=== PATIENT | female | born 1955 | race Caucasian/White ===

== ENCOUNTER 2023-05-06 14:01 | Outpatient (OUT) | payer OTHER, SELFPAY ==
--- NOTE | 2023-05-06 | MM_ITS ---
Patient Name: CORAZON DUQUE MR#: [id number] : 1955 Exam Date: 05/06/2023 Ordering Doctor: DR Sydni Cooper M.D. RADIOLOGY REPORT PROCEDURE: MM TOMOSYNTHESIS SCREENING BI COMPARISON: MG MAMM SCREEN ESTHER W CAD, 11/20/2018. MG MAMM SCREEN 3D ESTHER CAD, 02/05/2022. INDICATIONS: Screening for malignant neoplasm Calculator Name NCI Breast Cancer Risk Assessment Tool 5 Year Breast Cancer Risk 1.20% Lifetime Breast Cancer Risk 4.40% Personal Breast Cancer No Personal Ovarian Cancer No Treatments None Family Cancers None LOCATION: [facility] BREAST COMPOSITION: Heterogeneously dense,which may obscure small masses. FINDINGS: DIAGNOSTIC CATEGORY 2--BENIGN FINDING. NO CHANGE FROM COMPARISON. Scattered benign-appearing calcifications are present. Scattered benign-appearing lymph nodes are present. RIGHT BREAST: No significant suspicious finding. LEFT BREAST: No significant suspicious finding. Asymmetry upper outer quadrant, mid breast, stable RECOMMENDATIONS: ROUTINE MAMMOGRAM AND CLINICAL EVALUATION IN 12 MONTHS. PLEASE NOTE: A NORMAL MAMMOGRAM DOES NOT EXCLUDE THE POSSIBILITY OF BREAST CANCER. A CLINICALLY SUSPICIOUS PALPABLE LUMP SHOULD BE BIOPSIED. Dictated by: Rishi Dangelo MD on 05/07/2023 at 07:33 Approved by: Rishi Dangelo MD on 05/07/2023 at 07:35
[2023-05-06 14:35] LABS: Basophils Percent Auto 0.7 % (0.2-2.0); Hematocrit 39.6 % (36.0-48.0); Hemoglobin 12.1 g/dL (12.0-16.0); Immature Granulocytes Abs Auto 0.02 10^3/uL (0.00-0.03); Immature Granulocytes Pct Auto 0.3 % (0.0-0.5); Lymphocytes Absolute Auto 1.8 10^3/uL (1.2-3.8); Lymphocytes Percent Auto 30.6 % (20.5-60.0); Mean Corpuscular HGB Conc 30.6 g/dL (29.9-35.2); Mean Corpuscular Hemoglobin 24.6 pg (26.7-34.0); Mean Corpuscular Volume 80.5 fL (81.0-99.0); Mean Platelet Volume 9.3 fL (9.5-13.5); Monocytes Absolute Auto 0.5 10^3/uL (0.3-0.8); Monocytes Percent Auto 8.4 % (1.7-12.0); Neutrophils Absolute Auto 3.4 10^3/uL (1.4-6.5); Platelet Count 324 10^3/uL (150-450); Red Blood Count 4.92 10^6/uL (4.20-5.40); Red Cell Distribution Width 15.4 % (11.0-15.0); White Blood Count 5.7 10^3/uL (4.0-11.0)
--- NOTE | 2023-05-06 14:55 | XR_ITS ---
The [address] [address] Patient Name: CORAZON DUQUE MRN: [id number] date: 1955 Sex: F Assigned Patient Location: MAMMO Current Patient Location: MAMMO Accession/Order Number: [id number] Exam Date: 05/06/2023 14:45 Report Date: 05/07/2023 01:29 At the request of: YASEMIN MALAVE Procedure: XR abdomen 1V EXAMINATION: XR abdomen 1V HISTORY: Right Flank Pain R10.0 COMPARISON: XR abdomen 02/15/2014 FINDINGS: KIDNEY/URETER - RIGHT: No visible renal or ureteral calcifications. KIDNEY/URETER - LEFT: No visible renal or ureteral calcifications. PELVIS: Stable right pelvic calcifications favoring phleboliths. BOWEL: No abnormal dilation or deviation. BONES: No acute abnormality. OTHER: Negative. No abnormal gaseous collections. XR/XR abdomen 1V IMPRESSION: 1. No appreciable urinary tract calculi. 2. Moderate stool burden. Electronically authenticated by: HUY DASH Date: 05/07/2023 01:29
--- NOTE | 2023-05-06 14:55 | XR_ITS ---
The [place] [id number] Patient Name: CORAZON DUQUE MRN: [id number] date: 1955 Sex: F Assigned Patient Location: MAMMO Current Patient Location: Accession/Order Number: [id number] Exam Date: 05/06/2023 14:45 Report Date: 05/07/2023 01:27 At the request of: YASEMIN MALAVE Procedure: XR foot RT min 3V PROCEDURE: XR foot RT min 3V HISTORY: Pain Of Right Heel M79.671 COMPARISON: None. FINDINGS: BONES:Bone hypertrophy the head of first metatarsal. Degenerative enthesopathic spurring of the Achilles tendon insertion and plantar aponeurosis. SOFT TISSUES:No visible soft tissue swelling. EFFUSION:None visible. OTHER: Negative. XR/XR foot RT min 3V IMPRESSION: 1. Moderate bunion formation. 2. Mild degenerative enthesopathic spurring which may contribute to patient's symptoms. Electronically authenticated by: HUY DASH Date: 05/07/2023 01:27
[2023-05-06 15:34] LABS: Alanine Aminotransferase 23 U/L (14-59); Albumin Globulin Ratio 1.1; Albumin Level 3.8 g/dL (3.4-5.0); Alkaline Phosphatase 89 U/L (46-116); Anion Gap 12.6; Aspartate Amino Transferase 11 U/L (15-37); BUN Creatinine Ratio 20.3; Bilirubin Total 0.2 mg/dL (0.2-1.0); Calcium 8.5 mg/dL (8.5-10.1); Carbon Dioxide 27.8 mmol/L (21.0-32.0); Chloride 104 mmol/L (98-107); Chol HDL Ratio 4.8; Cholesterol 259 mg/dL (<=200); Estimated GFR (African America >60 (>=60); Estimated GFR (Non-African Ame >60 (>=60); Globulin 3.5 g/dL; Glucose 115 mg/dL (74-106); HDL Cholesterol 54 mg/dL (40-60); Potassium 4.4 mmol/L (3.5-5.1); Sodium 140 mmol/L (136-145); Total Protein 7.3 g/dL (6.4-8.2); Triglycerides 135 mg/dL (<=150)
== END 2023-05-06 14:02 | disposition home or self-care (01) ==
LOC: MAMMO 14:01
PROVIDERS: PCP Family Medicine; Visit Provider Family Medicine
DX: M79.671 Pain in right foot (principal); R10.9 Unspecified abdominal pain; Z12.31 Encounter for screening mammogram for malignant neoplasm of breast; Z00.00 Encounter for general adult medical examination without abnormal findings
CPT/HCPCS: 36415; 73630; 74018; 77063; 77067; 80053; 80061; 84443; 85025

== ENCOUNTER 2025-05-07 14:29 | Outpatient (OUT) | payer OTHER, SELFPAY ==
--- OUTSIDE RECORDS SUMMARY | 2025-05-07 14:32 | XMS_ITS | CCD ---
Author Organization [facility] Care Team Providers Care Back Hanger Name Role Phone DR SYDNI MALAVE Admitting Unavailable ANANDA, DR SYDNI Manuel Primary Care Unavailable DR SYDNI MALAVE Attending Unavailable HARDY, DR DARREN Cruz Consulting Unavailable ANANDA, DR SYDNI Manuel Consulting Unavailable Sydni Malave Sydni Malave MD Primary Care Provider Sydni Malave MD Attending Provider Allergies Allergy ClassificationReported Allergen(s)Allergy TypeDate of OnsetReaction(s) Facility (3 sources)patient allergy list reviewed by nurse or physiciaPropensity to adverse emanopvhe40-95-0172Smvfudb:Orthos Other (3 sources)Allergies ReconciledPropensity to adverse reactionsLawrence General HospitalLendingStar Other Medications Current Medications MedicationDrug Class(es)DatesSig (Normalized)Sig (Original)ibuprofen 800 mg oral tablet (4 sources)Nonsteroidal Anti-inflammatory DrugStart: 46-82-9099izpx 1 tablet by mouth every four to six hours as needed for painIbuprofen 800 mg tablet Active MG PO April 02, 2025 12:00am FreeTextSi tablet Orally q 4-6 hrs for pain prn; Note: Source Status: Taking; Refills: 0; Qty: 30 Tablets; Provider: Angie Manuel Complies with drug therapyStart: 63-52-6800ihbm 1 tablet by mouth every four to six hours as needed for painIbuprofen 800 MG 1 tablet Orally q 4-6 hrs for pain prn for 10 days September, ActiveStart: 47-52-1274ugas 1 tablet by mouth every four to six hours as needed for painIbuprofen 800 MG 1 tablet Orally q 4-6 hrs for pain prn for 10 days September, ActivelamoTRIgine 100 mg oral tablet (9 sources)Mood Stabilizer, Anti-epileptic AgentStart: 05-22-2024 End: 94-61-6433mzak 1 tablet by mouth once dailyLamotrigine 100 mg tablet Active 0 .ROUTE .COMPLEX 30 November 17, 2024 11:43am TAKE 1 TABLET BY MOUTH DAILY Complies with drug therapyStart: 04-20-2024 End: 20-00-2820lzpf 1 tablet by mouth once dailyLamotrigine 100 mg tablet Discontinued 100 MG PO Daily 30 April 20, 2024 1:06pm May 22, 2024 8:03amStart: 03-24-2024 End: 48-58-0183xrfp 1 tablet by mouth once dailyLamotrigine 150 mg tablet Discontinued 150 MG PO Daily March 24, 2024 3:52pm April 20, 2024 1:06pmStart: 08-20-2023 End: 18-37-9009djbg 1 tablet by mouth once dailyLamotrigine 200 mg tablet Discontinued 200 MG PO Daily August 19, 2023 11:00pm March 24, 2024 3:52pm Start: 40-03-6117qkfl 1 tablet by mouth once dailylamoTRIgine 200mg lamoTRIgine 200mg, 1 (one) Tablet daily # 90, 05/02/2022, Ref. x3. Active oral daily for 0 *Pick strength-form from [employer] for eRX* Apr, ActiveSemaglutide (Weight Loss) (1 source)Start: 53-72-1317Jihdfvoulbq (Weight Loss) (Wegovy) 0.25 mg/0.5 mL pen injector Active 0.25 MG SUBCUT every week 2 0Nov2024 12:00am administer weeks 1 through 4 of therapy Complies with drug euwkhpm19 hr venlafaxine 75 mg extended release oral capsule (18 sources)Serotonin and Norepinephrine Reuptake InhibitorStart: 08-20-2023 End: 76-56-9596nahs 1 capsule by mouth once daily at mealtimeVenlafaxine 75 mg capsule,extended release 24hr Active 0 .ROUTE .COMPLEX March 30, 2025 12:16pm TAKE 1 CAPSULE BY MOUTH EVERY DAY WITH FOOD FOR 30 DAYS Complies with drug therapyStart: 08-20-2023 End: 15-30-9223hixj 1 capsule by mouth once dailyVenlafaxine 75 mg capsule,extended release 24hr Discontinued 75 MG PO Daily August 19, 2023 11:00pm August 20, 2023 8:24amVenlafaxine HCl ER 75 MG TAKE 1 CAPSULE BY MOUTH EVERY DAY WITH FOOD FOR 30 DAYS for 30 Active Problems Problem ClassificationProblemDateDocumented DateEpisodic/ChronicAbdominal pain (4 sources)Left upper quadrant pain; Translations: [Left upper quadrant pain] EpisodicDiabetes mellitus without complication (3 sources)Increased glucose level; Translations: [Other abnormal glucose] 57-70-1919VzobrzufHuxpxqlxj of lipid metabolism (3 sources)Hyperlipidemia; Translations: [Hyperlipidemia, unspecified]03-24-2024 ChronicDiverticulosis and diverticulitis (3 sources)Diverticular disease; Translations: [Diverticulosis]Chronic Gastrointestinal hemorrhage (3 sources)Hematochezia; Translations: [Blood in stool]EpisodicMood disorders (1 source)Depressive disorder; Translations: [Depression]36-29-3786UzldkmpYpwxj circulatory disease (2 sources)Carotid bruit; Translations: [Other specified symptoms and signs involving the circulatory and respiratory systems]52-31-8720YzosapwhGmjkq connective tissue disease (1 source)Pain in right footEpisodicOther gastrointestinal disorders (3 sources)Constipation; Translations: [Constipation, unspecified]EpisodicOther screening for suspected conditions (not mental disorders or infectious disease) (5 sources)Encounter for screening mammogram for malignant neoplasm of breast; Translations: [Patient encounter status]EpisodicOther skin disorders (3 sources)Disorder of pigmentation, unspecified; Translations: [Hyperpigmentation]EpisodicThyroid disorders (3 sources)Hypothyroidism; Translations: [Hypothyroidism, unspecified]Chronic Results Test NameValueInterpretationReference RangeFacilityCBC AUTO DIFFon 02-05-2022 BASO #0.0 103/ulNormal0.0-0.1The [facility]burgComment on above:Performed By: #### CBC #### [facility] [address] [address] [address] Yilan ChangBasophils/100 WBC (Bld)0.6 %Normal0.2-2.0The [facility] Comment on above:Performed By: #### CBC #### [facility] [address] [place] [address] Dr. Anali Mohamud #0.0 103/ulNormal0.0-0.7The [facility]burgComment on above: Performed By: #### CBC #### [facility] [address] [place] [address] Dr. Anali Sanchesosinophils/100 WBC (Bld)0.0 %Critically low0.9-7.0The [facility]amisburgComment on above:Performed By: #### CBC #### [facility] [address] [place] [address] Dr. Anali Sanchesrythrocyte distribution width (RBC) [Ratio]15.7 %Critically high 11.0-15.0The [facility]amisburgComment on above:Performed By: #### CBC #### [facility] [address] [place] [address] Dr. Anali TeixeiraHematocrit (Bld) [Volume fraction]39.7 %Xeyman20.0-48.0The [facility]burgComment on above:Performed By: #### CBC #### [facility] [address] [place] [address] Dr. Anali TeixeiraHemoglobin (Bld) [Mass/Vol]12.3 g/mTGuoouw23.0-16.0The [facility]burgComment on above:Performed By: #### CBC #### [facility] [address] [place] [address] Dr. Anali Paredes #0.03 10e3/ulNormal0.00-0.03The [facility]burgComment on above:Performed By: #### CBC #### [facility] [address] [place] [address] Dr. Anali Paredes %0.5 %Normal0.0-0.5The [facility]burgComment on above: Performed By: #### CBC #### [facility] [address] [address] [address] Anali Jacobsen #1.9 103/ulNormal1.2-3.8The [facility]burgComment on above:Performed By: #### CBC #### [facility] [address] [place] [address] Dr. Anali Guymphocytes/100 WBC (Bld)29.5 %Mpnhlf29.5-60.0The [facility]burgComment on above:Performed By: #### CBC #### [facility] [address] [place] [address] Dr. Anali Brown DIFF REQNONormalThe [facility]burgComment on above: Performed By: #### CBC #### [facility] [address] [place] [address] Dr. Anali Saldivar (RBC) [Entitic mass]24.6 pgCritically low26.7-34.0The [facility]burgComment on above:Performed By: #### CBC #### [facility] [address] [place] [address] Dr. Anali Saldivar (RBC) [Mass/Vol]31.0 g/iKDgnrmf59.9-35.2The [facility]burgComment on above:Performed By: #### CBC #### [facility] [address] [place] [address] Dr. Anali Saldivar (RBC) [Entitic vol]79.6 fLCritically low81.0-99.0The [facility]burgComment on above:Performed By: #### CBC #### [facility] [address] [place] [address] Dr. Anali Johnson #0.5 103/ulNormal0.3-0.8The [facility]burgComment on above:Performed By: #### CBC #### [facility] [address] [place] [address] Dr. Anali Del Castilloocytes/100 WBC (Bld)7.8 %Normal1.7-12.0The [facility] Comment on above:Performed By: #### CBC #### [facility] [address] [place] [address] Dr. Anali DelucaUT #3.9 103/ulNormal1.4-6.5The [facility] on above:Performed By: #### CBC #### [facility] [address] [place] [address] Dr. Anali Delucautrophils/100 WBC (Bld)61.6 %Dacmaw18.0-75.0The [facility]burgComhealthsource sag[place] on above:Performed By: #### CBC #### [facility] [address] [place] [address] Dr. Anali TeixeiraPlatelet mean volume (Bld) [Entitic vol]9.6 fLNormal9.5-13.5The [facility] on above:Performed By: #### CBC #### [facility] [address] [place] [address] Dr. Anali TeixeiraPLT303 103/pnSgbhzw357-868Okh [facility] on above: Performed By: #### CBC #### [facility] [address] [place] [address] Dr. Anali TeixeiraRBC4.99 106/ulNormal4.20-5.40The [facility] on above:Performed By: #### CBC #### [facility] [address] [place] [address] Dr. Anali TeixeiraWBC6.3 103/ulNormal4.0-11.0The [facility] on above: Performed By: #### CBC #### [facility] [address] [place] [address] Dr. Anali TeixeiraLIPID PROFILEon 23-21-1523FBKD-HDL RATIO NORMSEE [facility] on above:Result Comment: 3.3 - 4.4 LOW RISK 4.4 - 7.1 AVERAGE RISK 7.1 - 11.0 MODERATE RISK >11.0 HIGH RISKPerformed By: #### CMP, TSH, LIPID #### [facility] [address] [place] [address] Dr. Yilan ChangCholesterol [Mass/Vol]256 mg/dLCritically high<=200The [facility]burgComment on above:Performed By: #### CMP, TSH, LIPID #### [facility] [address] [place] [address] Dr. Anali Astudilloesterol in HDL [Mass/Vol]55 mg/bBSqpmpn09-89Avh [facility]burgComment on above:Performed By: #### CMP, TSH, LIPID #### [facility] [address] [address] [address] Anali Astudilloesterol in LDL [Mass/Vol]173.0 mg/dLNoAvita Health System Ontario HospitalComment on above:Performed By: #### CMP, TSH, LIPID #### [facility] [address] [place] [address] Dr. Anali Mcdaniel.total/Cholesterol in HDL [Mass ratio]4.7 {ratio} NormalThe [facility]burgComment on above:Performed By: #### CMP, TSH, LIPID #### [facility] [address] [place] [address] Dr. Anali Lemus NORMAL> or = 60 mg/dl - LOW CARDIOVASCULAR RISK <40 mg/dl - HIGH CARDIOVASCULAR RISKProMedica Bay Park HospitalComment on above:Performed By: #### CMP, TSH, LIPID #### [facility] [address] [place] [address] Dr. Anali Spangler CALC NORMALSEE BELOWNoAvita Health System Ontario HospitalComment on above:Result Comment: <100 mg/dl OPTIMAL 100 - 129 mg/dl NEAR OR ABOVE OPTIMAL 130 - 159 mg/dl BORDERLINE HIGH 160 - 189 mg/dl HIGH >190 mg/dl VERY HIGH Performed By: #### CMP, TSH, LIPID #### [facility] [address] [place] [address] Dr. Anali TeixeiraTriglyceride [Mass/Vol]140 mg/dLNormal<=150The [facility] Comment on above:Performed By: #### CMP, TSH, LIPID #### [facility] [address] [place] [address] Dr. Yilan ChangVLDL CALC28.0 mg/dLNoAvita Health System Ontario HospitalComment on above: Performed By: #### CMP, TSH, LIPID #### [facility] [address] [place], [place] [address] Dr. Anali TeixeiraMG MAMM SCREEN 3D ESTHER CADon 64-76-6555ZZ MAMM SCREEN 3D ESTHER CAD Patient: ALE DUQUE Exam Date: 02/05/2022 : 1955 Gender:F Ordering : DR SYDNI MALAVE M.D. Admission #: [id number] Family : Order #: [id number] CLICK HERE TO VIEW EXAM RADIOLOGY REPORT PROCEDURE: MAMMOGRAM SCREENING 3D BILATERAL CAD COMPARISON: MG MAMM ESTHER SCRN W CAD DIG, 04/03/2016. MG MAMM ESTHER SCRN W CAD DIG, 01/15/2014. DIGITIZED_MAMMO, 06/03/2007. MG MAMM SCREEN ESTHER W CAD, 11/20/2018. INDICATIONS: Screening mammography Calculator Name NCI Breast Cancer Risk Assessment Tool 5 Year Breast Cancer Risk 1.20% Lifetime Breast Cancer Risk 4.60% Personal Breast Cancer No Personal Ovarian Cancer No Treatments None Family Cancers None LOCATION: [facility] BREAST COMPOSITION: Heterogeneously dense,which may obscure small masses. FINDINGS: DIAGNOSTIC CATEGORY 1--NEGATIVE. RIGHT BREAST: No significant suspicious finding. No significant change has occurred. LEFT BREAST: No significant suspicious finding. No significant change has occurred. RECOMMENDATIONS: ROUTINE MAMMOGRAM AND CLINICAL EVALUATION IN 12 MONTHS. PLEASE NOTE: A NORMAL MAMMOGRAM DOES NOT EXCLUDE THE POSSIBILITY OF BREAST CANCER. A CLINICALLY SUSPICIOUS PALPABLE LUMP SHOULD BE BIOPSIED. Dictated by: Darren Booker M.D. on 02/06/2022 at 08:52 Approved by: Darren Booker M.D. on 02/06/2022 at 08:56NoAvita Health System Ontario HospitalPROF 14(COMP METB)on 79-91-5422Bvskuoa [Mass/Vol]3.7 g/dLNormal3.4-5.0 The [facility]burgComment on above:Performed By: #### CMP, TSH, LIPID #### [facility] [address] [place], [place] [address] Dr. Anali TeixeiraAlbumin/Globulin [Mass ratio]1.1 {ratio}NormalThe [facility]burgComment on above:Performed By: #### CMP, TSH, LIPID #### [facility] [address] [address] [address] Anali Acosta [Catalytic activity/Vol]89 U/XYpfdvx45-580Itw [facility]burgComment on above:Performed By: #### CMP, TSH, LIPID #### [facility] [address] [address] [address] Anali Ornelas [Catalytic activity/Vol]26 U/TRutvgy01-34Qnw [facility]burgComment on above:Performed By: #### CMP, TSH, LIPID #### [facility] [address] [place] [address] Dr. Anali Hurd gap [Moles/Vol]10.5 mmol/LNormalThe [facility] Comment on above:Performed By: #### CMP, TSH, LIPID #### [facility] [address] [place] [address] Dr. Anali Hudson [Catalytic activity/Vol]12 U/LCritically qia70-98Pcn [facility]burgComment on above:Performed By: #### CMP, TSH, LIPID #### [facility] [address] [place] [address] Dr. Anali TeixeiraBilirubin [Mass/Vol]0.1 mg/dLCritically low0.2-1.0The [facility]burgComment on above:Performed By: #### CMP, TSH, LIPID #### [facility] [address] [place] [address] Dr. Anali TeixeiraCalcium [Mass/Vol]8.5 mg/dLNormal8.5-10.1[facility] Comment on above:Performed By: #### CMP, TSH, LIPID #### [facility] [address] [place] [address] Dr. Anali TeixeiraChloride [Moles/Vol]105 mmol/AOcqmjg10-997SajPromedica [facility] Hospital Comment on above:Performed By: #### CMP, TSH, LIPID #### [facility] [address] [place] [address] Dr. Anali TeixeiraCO2 [Moles/Vol]27.9 mmol/XEwncul38.0-32.0The [facility] Comment on above:Performed By: #### CMP, TSH, LIPID #### [facility] [address] [address] [address] Anali TeixeiraCreatinine [Mass/Vol]0.76 mg/dLNormal0.55-1.02The [facility]burgComment on above:Performed By: #### CMP, TSH, LIPID #### [facility] [address] [place] [address] Dr. Anali SanchesGFR-AF BELARUSIAN>60Normal>=60The [facility]amisburgComment on above:Performed By: #### CMP, TSH, LIPID #### [facility] [address] [place] [address] Dr. Anali Moody-NON AF BELARUSIAN>60Normal>=60The [facility]burgComment on above:Performed By: #### CMP, TSH, LIPID #### [facility] [address] [place] [address] Dr. Anali TeixeiraGlobulin (S) [Mass/Vol]3.5 g/dLNormalThe [facility]burgComment on above:Performed By: #### CMP, TSH, LIPID #### [facility] [address] [place] [address] Dr. Anali TeixeiraGlucose [Mass/Vol]115 mg/dLCritically hbzq15-048Kyv [facility]burgComment on above:Performed By: #### CMP, TSH, LIPID #### [facility] [address] [place] [address] Dr. Anali TeixeiraPotassium [Moles/Vol]4.4 mmol/LNormal3.5-5.1The [facility] Comment on above:Performed By: #### CMP, TSH, LIPID #### [facility] [address] [place] [address] Dr. Anali TeixeiraProtein [Mass/Vol]7.2 g/dLNormal6.4-8.2The [facility] Comment on above:Performed By: #### CMP, TSH, LIPID #### [facility] [address] [address] [address] Anali TeixeiraSodium [Moles/Vol]139 mmol/UPnwsem383-405Tak [facility] Comment on above:Performed By: #### CMP, TSH, LIPID #### [facility] [address] [address] [address] Anali Bonilla nitrogen [Mass/Vol]17.0 mg/dLNormal7.0-18.0The [facility]burgComment on above:Performed By: #### CMP, TSH, LIPID #### [facility] [address] [address] [address] Anali Bonilla nitrogen/Creatinine [Mass ratio]22.4 mg/mgNoalThe [facility]burgComment on above:Performed By: #### CMP, TSH, LIPID #### [facility] [address] [address] [address] Anali Silver 97-68-3712QRC1.402 uIU/mLNormal0.358-3.740The [facility]burgComment on above:Performed By: #### CMP, TSH, LIPID #### [facility] [address] [address] [address] Anali TeixeiraLab Reportson 17-43-7539Dmr Reports [id number]#1.00CD:[address] [place], [place] [address]IntraOperative Documentson 86-55-4353SgnlsBttkwddvu Documents [id number]#1.00CD:[address] [place], [place] [address]Pre-Certification Formon 90-15-2156Dgv-Certification Form [id number]#1.00CD:[address] [place], [place] [address]Coding Summary.on 18-41-1616Vtkduv Summary.CODING DATE: 05/02/2020 FINAL [facility] STATUS: Home (Routine DC) PAYOR: [place] ADMIT DX: REASON FOR VISIT DX: Z01.812 Encounter for preprocedural laboratory examination FINAL DX: PRINCIPAL: Z01.812 Encounter for preprocedural laboratory examination SECONDARY: Z20.828 Contact with and (suspected) exposure to other viral communicable diseases K59.00 Constipation, unspecified R14.0 Abdominal distension (gaseous) K62.5 Hemorrhage of anus and rectum PYMT PROC APC STAT DESCRIPTION DOCTOR NAME DATE NOTE: The code number assigned matches the documented diagnosis and / or procedure in the patient's chart. However, the narrative phrase printed from the coding software may appear abbreviated, or result in slightly different terminology. Coded By: Margo Lopez CphT Date Saved: 05/02/2020 12:26 pmNClermont County HospitalPostoperative Documentson 28-97-4520Adxzvsyzxmntb Documents [id number]#1.00CD:127NoMer[address] Vincent Medical CenterCoding Summary.on 13-21-0974[place] Summary.CODING DATE: 04/29/2020 FINAL [facility] STATUS: Home (Routine DC) PAYOR: [place] APC DESCRIPTION 5311 Level 1 Lower GI Procedures ADMIT DX: REASON FOR VISIT DX: K62.5 Hemorrhage of anus and rectum FINAL DX: PRINCIPAL: K62.5 Hemorrhage of anus and rectum SECONDARY: K57.30 Diverticulosis of large intestine without perforation or abscess without bleeding K64.8 Other hemorrhoids K59.00 Constipation, unspecified R14.0 Abdominal distension (gaseous) PYMT PROC APC STAT DESCRIPTION DOCTOR NAME DATE 28256 5311 T Colonoscopy, flexible; Judith QUARLES MD 04/26/2020 diagnostic, including collection of specimen(s) by brushing or washing, when performed (separate procedure) 06354 Anesthesia for lower Arroyo Jr. Cr MEDRANO 04/26/2020 intestinal endoscopic procedures, endoscope introduced distal to duodenum; not otherwise specified NOTE: The code number assigned matches the documented diagnosis and / or procedure in the patient's chart. However, the narrative phrase printed from the coding software may appear abbreviated, or result in slightly different terminology. Revised Coded By: Carly Stokes Revised Date Saved: 04/29/2020 04:07 [facility] HospitalPre- Certification Formon 79-95-7764Owj-Certification Form [id number]#1.00CD:127NormalFisher Western [facility] CenterMain OR Intraoperative Recordon 80-42-6757Qapu OR Intraoperative Record IntraOp Document Type FT Summary Primary Physician: Judith QUARLES MD Finalized Date/Time: 04/28/20 15:26:55 Pt. Name: ALE DUQUE /Sex: 1955 Female Med Rec #: [id number] Physician: Judith QUARLES MD Financial #: [id number] Pt. Type: O Room/Bed: / Admit/Disch: 04/26/20 07:15:27 - 04/26/20 23:59:59 Institution: Case Times FT Entry 1 Patient Times In Room 04/26/20 09:11:00 Out Room 04/26/20 09:29:00 Procedure Times Start 04/26/20 09:15:00 Stop 04/26/20 09:27:00 Anesthesia Times Start 04/26/20 09:11:00 Stop 04/26/20 09:29:00 Time at [place] 04/26/20 09:21:00 Last Modified By: Karl MATTHEWS, Monae Trimble 04/26/20 09:29:45 General Comments: 04/28/20 - chart logged and finalized for charges. Christiana Delgado, MSN, RN Case Attendance FT Entry 1 Entry 2 Entry 3 Case Attendee Cr Arroyo Jr., DO, MD, Judith Barajas RN, Monae Trimble Role Performed Anesthesiologist of Surgeon - Primary Automotive Salesperson - Primary Record Time In 04/26/20 09:11:00 04/26/20 09:11:00 04/26/20 09:11:00 Time Out 04/26/20 09:29:00 04/26/20 09:29:00 04/26/20 09:29:00 Procedure COLONOSCOPY(.) COLONOSCOPY(.) COLONOSCOPY(.) Comments Last Modified By: Karl RN, Monae Barajas RN, Monae Barajas RN, Monae Trimble 04/26/20 09:29:47 04/26/20 09:29:47 04/26/20 09:29:47 Entry 4 Case Attendee Katerina Skinner Role Performed Scrub - Primary Time In 04/26/20 09:11:00 Time Out 04/26/20 09:29:00 Procedure COLONOSCOPY(.) Comments Last Modified By: Monae Barajas RN 04/26/20 09:29:47 Perioperative Protocols FT Pre-Care Text: Implements protective measures prior to operative or invasive procedure, confirms identity before the operative or invasive procedure, verifies operative procedure, surgical site, and laterality Entry 1 Procedure(s) COLONOSCOPY(.) Patient Identity Birthday, ID Band Verified (select at Check, Patient least 2): Participation Consents / H and P Anesthesia Consent, Operative Site N/A Verified HandP, Surgery/Procedure Marking Verified Consent Surgical Site No Laterality Verified n/a Verified Procedure Verified Yes Correct Patient Yes Position Verified Availability Equipment, Medication Prep Dry n/a Verified (If Applicable) PreOp Antibiotic No Time Out Cr Arryoo Jr., DO Given ROBINA Schmitz MD, Maher, Schaffer RN, Brody Blackmon Kirstyn K Time Out Complete 04/26/20 09:14:00 Outcomes Met? Yes Last Modified By: Monae Barajas RN 04/26/20 09:14:33 Post-Care Text: The patient is free from signs and symptoms of injury caused by extraneous objects Allergy Information FT Pre-Care Text: Verifies allergies Entry 1 Allergies Reviewed? Yes Allergies Reviewed Self/Patient With Outcomes Met? Yes Last Modified By: Monae Barajas RN 04/26/20 07:16:38 Post-Care Text: The patient received appropriate medication(s) safely administered during the perioperative period Surgical Procedures FT Entry 1 Procedure Description Procedure COLONOSCOPY Modifiers . Surgeon Description Colonoscopy Primary Procedure Yes Primary Surgeon Judith QUARLES MD Start 04/26/20 09:15:00 Stop 04/26/20 09:27:00 Anesthesia Type General Surgical Service Gastroenterology Wound Class 2 - Clean-Contaminated Last Modified By: Monae Barajas RN 04/26/20 09:28:05 General Case Data FT Pre-Care Text: Classifies surgical wound, implements aseptic technique, initiates traffic control Entry 1 Case Information OR OR 4 FT Case Level Level 2 Wound Class 2 - Clean-Contaminated Specialty Gastroenterology ASA Class 2 Preop Diagnosis CONSTIPATION BLOATING Postop Same As Preop No RECTAL BLEED Postop Diagnosis Diverticulosis and Outcomes Met? Yes internal hemorrhoids Last Modified By: Monae Barajas RN 04/26/20 09:29:40 Post-Care Text: The patient is free from signs and symptoms of infection Skin Assessment (Pre Procedure) FT Pre-Care Text: Implements protective measures to prevent skin/ tissue injury due to thermal or mechanical sources Evaluates for signs and symptoms of physical injury to skin and tissue Entry 1 Skin Integrity Intact, [place], Warm, and Skin Abnormality No Dry Outcomes Met? Yes Last Modified By: Monae Barajas RN 04/26/20 07:17:06 Post-Care Text: The patient is free from signs and symptoms of injury caused by extraneous objects Patient Positioning FT Pre-Care Text: Identifies physical alterations that require additional precautions for procedure-specific positioning, verifies presence of prosthetics or corrective devices, positions the patient, evaluates the patient for signs and symptoms of injury as a result of positioning Entry 1 Procedure COLONOSCOPY(.) Body Position Lateral, right side up Feet Uncrossed? Yes Left Arm Position Resting at Side Right Arm Position Resting at Side Left Leg Position Extended Right Leg Position Extended Positioning Device Pillow Under Head Large, Safety Strap Press Points Checked Yes By Monae Barajas RN Outcomes Met? Yes Last Modified By: Monae Barajas RN 04/26/20 07:17:16 Post-Care Text: The patient is free from signs and symptoms of injury related to positioning Patient Care Devices FT Pre-Care Text: Implements protective measures to prevent skin/ tissue injury due to thermal or mechanical sources Entry 1 Entry 2 Equipment Type ENDOSCOPY VIDEO MONITOR CHARGE SURGERY SYSTEM[F] [F] Equipment Number OR 4 OR 4 Equipment Setting Outcomes Met? Yes Yes Last Modified By: Monae Barajas RN, RN, Kara N 04/26/20 07:17:36 04/26/20 07:17:36 Post-Care Text: The patient is free from signs and symptoms of injury caused by extraneous objects Transport To OR FT Pre-Care Text: Transports according to individual needs. Evaluates for signs and symptoms of skin and tissue injury as a result of transfer or transport Entry 1 Via Cart By Monae Barajas RN Safety Precautions Safety Strap, Side Outcomes Met? Yes Rails Up Last Modified By: Monae Barajas RN 04/26/20 07:17:44 Post-Care Text: The patient is free from signs and symptoms of injury related to transfer/transport Departure From OR FT Pre-Care Text: Transports according to individual needs. Evaluates for signs and symptoms of skin and tissue injury as a result of transfer or transport. Entry 1 Via Cart Safety Precautions Safety Strap, Side Rails Up PostOp Destination PACU Transported By Monae Barajas RN Patient Status Stable Skin. Condition Intact, [place], Warm, and Dry Airway Maintenance Oxygen in Use? No Airway Device N/A Outcomes Met? Yes Last Modified By: Monae Barajas RN 04/26/20 07:18:07 Post-Care Text: The patient is free from signs and symptoms of injury related to transfer/transport General Comments: Report given to PACU,RN/[place],sports marketer Administration FT Pre-Care Text: Verifies allergies, administers prescribed medications and solutions, administers prescribed antibiotic therapy and immunizing agents as ordered, evaluates response to medications Administers prescribed medications and solutions Entry 1 Expiration Date Yes Outcomes Met? Yes Verified Last Modified By: Monae Barajas RN 04/26/20 07:18:23 Post-Care Text: The patient received appropriate medication(s) safely administered during the perioperative period For [facility] please see scanned medication reconcilliation form for medications used at the field during the procedure. Cultures and Specimens FT Pre-Care Text: Manages specimen handling and disposition Manages culture specimen collection Entry 1 Cultures Ordered n/a Specimens Ordered No Frozen Section Times Outcomes Met? Yes Last Modified By: Monae Barajas RN 04/26/20 09:27:45 Post-Care Text: The patient is free from signs and symptoms of injury caused by extraneous objects The patient is free from signs and symptoms of infection Case Comments Finalized By: AMELIA Delgado RN, Andrea Document Signatures Signed By: Monae Barajas RN 04/26/20 09:29 AMELIA Delgado RN, Andrea 04/28/20 15:26NormalUniversity Hospitals Portage Medical CenterConsenton [id number]:127Normal [facility] CenterDischarge Instructionson 03-08-5323Xvpselncc [id number]:127[facility] CenterHistory and Physicalon 54-41-1766Sufplov and Physical [id number]:127[address]Mer[address] Vincent Medical CenterIntraOperative Documentson [id number] Documents [id number]:127[facility] CenterIntraOperative Documents [id number]:127[facility] Medical CenterConsent for Treatmenton 64-14-3459Mbmeagl for Treatment [id number]:127[facility] Medical CenterEndoscopic Procedure Report - Otheron [id number] Procedure Report - OtherPatient: ALE DUQUE Age: 64 years Sex: Female : 1955 Associated Diagnoses: None Author: Judith QUARLES MD Pre-Procedure Procedure Date 04/26/2020 09:28:00 . Procedure Type: Colonoscopy. Procedure provider Performed by Judith Quarles MD. Current history and physical Documented on chart. Colorectal neoplasm risk assessment Average risk. Informed Consent After discussing the rationale, risks and benefits, and alternatives to this procedure, the patient provided signed consent for the procedure. Pre-procedure diagnosis: Constipation. Rectal bleeding. Medications Anticoagulant/antiplatelet None. ASA Classification: Class II. . Monitoring: See anesthesia record. . Procedure The procedure was performed in the hospital. See anesthesia record for sedation given during procedure. Rectal exam was performed and was normal with no masses palpated, with no gross blood, with no fissure(s). The patient was positioned starting in the left lateral decubitus position and with safety measures. Endoscope type used was an adult-size. The endoscope was lubricated then introduced through the anus. The scope was advanced to the cecum verified by photographing the appendiceal orifice, verified by photographing the ileocecal valve, The time to the cecum was 6 minutes, The withdrawaltime was 6 minutes. No difficulties encountered during the procedure. The bowel preparation qualitywas adequate (see polyps greater than or equal to 6 millimeters). The patient tolerated the procedure well. Findings Mild diverticulosis in the sigmoid and descending colon Small nonbleeding internal hemorrhoids, otherwise normal colonoscopy Images Procedure images: Rectal retroflex Appendiceal orifice . Post-Procedure Complications: none. Estimated blood loss: none. Specimens: none. Devices/ implants: none left in place. Impression and Plan Impression: Mild diverticulosis in the sigmoid and descending colon Small nonbleeding internal hemorrhoids, otherwise normal colonoscopy Recommendations: Repeat colonoscopy:: In 10 years. Follow-up:: Follow-up with PCP as previously scheduled. Diet:: Resume previous diet. Medication resumption:: Continue current medications. Return to activities:: After 24 hours.[facility] Medical CenterComment on above:Result Comment: Electronically Signed By: Judith QUARLES MD\.br\Date and Time Signed: 04/26/20 09:30 ESTOther Comment: Missing Attachment - attachment storage system not supported [id number] Can be viewed in source systemMissing Attachment - attachment storage system not supported [id number] Can be viewed in source systemInpatient Patient Summaryon 01-08-2886Pstmystac Patient Summary [address] [facility] Clinical Discharge Instructions PERSON INFORMATION Name: ALE DUQUE [facility]#:[id number] PHYSICIANS Admitting Physician: Judith QUARLES MD Attending Physician: Judith QUARLES MD PCP: SDYNI MALAVE MD Discharge Diagnosis: Internal hemorrhoids Comment: PATIENT EDUCATION INFORMATION Instructions: Colonoscopy, Care After Surgery Robina (CUSTOM); Diverticulosis MAGR (CUSTOM) Medication Leaflets: Follow up: With: Address: When: Judith [facility], [address] [place] [id number] Business (1) Type Location Start [facility] Follow Up [facility] 05/19/2020 11:00 AM 05/19/2020 11:15 AM Confirmed MEDICATION LIST Medications to Continue with No Changes Other Medications ciprofloxacin (Cipro 500 mg Tab) 1 Tablets By Mouth 2 times a day for 10 Days. Refills: 0. lamotrigine (Lamictal) 200 Milligram By Mouth every day. venlafaxine (Effexor XR 75 mg Cap-ER) 1 Capsules By Mouth every day. Comment:[facility] CenterMain OR PACU I Recordon [id number] OR PACU I RecordPACU Phase I Document Type FT Summary Primary Physician: Judith QUARLES MD Finalized Date/Time: 04/26/20 10:27:02 Pt. Name: ALE DUQUE Melissa AwanB./Sex: 1955 Female Med Rec #: [id number] Physician: Judith QUARLES MD Financial #: [id number] Pt. Type: O Room/Bed: / Admit/Disch: 04/26/20 07:15:27 - Institution: Case Times PACU I FT Pre-Care Text: Identifies barriers to communication and implements measures to provide psychological support Develops individualized plan of care, and ensures continuity of care Maintains patient's dignity and privacy, and maintains patient confidentiality Identifies and reports philosophical, cultural, and spiritual beliefs and values Identifies individual values and wishes concerning care Implements aseptic technique, and administers prescribed antibiotic therapy and immunizing agents as ordered Evaluates postoperative tissue perfusion Implements thermoregulation measures, and monitors body temperature Evaluates postoperative respiratory status Evaluates postoperative cardiac status Evaluates postoperative neurological status Assesses pain control, collaborated in initiating patient-controlled analgesia and implements alternative methods of pain control Verifies allergies, administers prescribed medications and solutions, evaluates response to medications Entry 1 In PACU I 04/26/20 09:31:00 Discharge from PACU 04/26/20 10:10:00 I Outcomes Met? Yes Last Modified By: Yara Barbosa RN 04/26/20 10:20:15 Post-Care Text: The patient demonstrates knowledge of the expected response to the operative or invasive procedure The patient's care is consistent with the individualized perioperative plan of care The patient's rightto privacy is maintained The patient's value system, lifestyle, ethnicity, and culture are considered, respected, and incorporated into the perioperative plan of care The patient participates in decisions affecting his or her perioperative plan of care The patient is free from signs and symptoms of infection The patient has wound/tissue perfusion consistent with or improved from baseline levels established preoperatively The patient is at or returning to normothermia at the conclusion of the immediate postoperative period The patient's respiratory function is consistent with or improved from baseline levels established preoperativelyThe patient's cardiovascular status is consistent with or improved from baseline levels established preoperatively The patient's cardiovascular status is consistent with or improved from baseline levels established preoperatively The patient demonstrates and/or reports adequate pain control throughout the perioperative period The patient received appropriate medication(s), safely administered during the perioperativeperiod Acuity Level PACU I FT Entry 1 Start Time 04/26/20 09:31:00 Stop Time 04/26/20 10:10:00 Acuity Level Acuity Level I Last Modified By: Yara Barbosa RN 04/26/20 10:27:01 Finalized By: Yara Barbosa RN Document Signatures Signed By: Yara Barbosa RN 04/26/20 10:27[facility] CenterMain OR Preoperative Recordon [id number] OR Preoperative RecordHolding Area Document Type FT Summary Primary Physician: Judith QUARLES MD Finalized Date/Time: 04/26/20 07:38:21 Pt. Name: ALE DUQUE./Sex: 1955 Female Med Rec #: [id number] Physician: Judith QUARLES MD Financial #: [id number] Pt. Type: O Room/Bed: / Admit/Disch: 04/26/20 07:15:27 - Institution: Case Times Holding FT Pre-Care Text: Verifies consent for planned procedure, identifies individual values and wishes concerning care, includes family members in perioperative teaching Secures patient's records' belongings, and valuables, maintains patient's dignity and privacy, and maintains patient confidentiality Entry 1 In Holding 04/26/20 07:26:00 Outcomes Met? Yes Last Modified By: Patrick Lantigua RN 04/26/20 07:26:45 Post-Care Text: The patient participates in decisions affecting his or her perioperative plan of care The patient'sright to privacy is maintained Surgery Checklist FT Entry 1 Patient Birthday, ID Band Procedure History and Physical, Identification: Check, Patient Verification: Surgical Consent, With Participation Patient NPO after Midnight: No Personal Items: Glasses, Jewelry Personal Items rings, watch Limitations: none Comment: Complaints of Pain: Yes Pain Comment: abdominal cramping 08/03 Operative Site n/a Availability Equipment Marking: Verified: Does Patient Smoke No Patient states Yes Comment - Adult Richard- postop adult Supervision supervision available Case Cancelled in No Holding Area see comments below for reason Last Modified By: Patrick Lantigua RN 04/26/20 07:38:13 General Comments: pt finished prep at 0515. nothing to eat or drink since. MSRN Finalized By: Patrick Lantigua RN Document Signatures Signed By: Patrick Lantigua RN 04/26/20 07:38NoMercy Health St. Vincent Medical CenterMonitor Recordon [id number] Record [id number]:127No[facility] Center [id number]#1.00CD:127Noal [facility] CenterOutpatient Surgery Discharge Instructionon 04-26-2020 Outpatient Surgery Discharge Instruction [place] [id number] Patient Discharge Instructions PERSON INFORMATION Name: ALE DUQUE Date of : 1955 Current Date: 04/26/2020 09:49:37 PHYSICIANS Admitting Physician: ROBINA BRODERICK Wong Discharge Diagnosis: Internal hemorrhoids ALE DUQUE has been given the following list of follow-up instructions, prescriptions, and patient education materials: PATIENT FOLLOW-UP INFORMATION Diet: Regular Discharge Activity: Resume normal activities in 24 hours Discharge Restrictions: No driving for 24 hrs, Do not operate machinery or tools, Do not make important decisions for 24 hours Additional Instructions: Metamucil fiber 1 tablespoon daily IF UNABLE TO CONTACT YOUR PHYSICIAN AND YOU FEEL IT IS AN EMERGENCY, GO TO THE NEAREST EMERGENCY ROOM OR CALL 911 NETO LovettQUINNSA Melissa, have received the attached patient education materials/instructions and have verbalized understanding: May we do a follow up call? Yes No I was present when discharge instructions were given Patient Signature Date Clinican/Nurse Signature Date Follow up: With: Address: When: [facility], [address] [place] [address] Business (1) Type Location [facility] Follow Up [facility] 05/19/2020 11:00 AM 05/19/2020 11:15 AM Confirmed Pharmacy Information: Thank you for choosing [facility] HERE ARE THE MEDICATION CHANGES THAT OCCURRED DURING YOUR HOSPITAL STAY Medications to Continue with No Changes Other Medications ciprofloxacin (Cipro 500 mg Tab) 1 Tablets By Mouth 2 times a day for 10 Days. Refills: 0. lamotrigine (Lamictal) 200 Milligram By Mouth every day. venlafaxine (Effexor XR 75 mg Cap-ER) 1 Capsules By Mouth every day. PATIENT EDUCATION INFORMATION Instructions: Colonoscopy Care After Surgery Please read the instructions outlined below and refer to this sheet in the next few weeks. These discharge instructions provide you with general information on caring for yourself after you leave thehospital. Your doctor may also give you specific instructions. While your treatment has been planned according to the most current medical practices available, unavoidable complications occasionally occur. If you have any problems or questions after discharge, please call your doctor. ACTIVITY You may resume your regular activity, but move at a slower pace for the next 24 hours. Take frequent rest periods for the next 24 hours. Walking will help get rid of the air and reduce the bloated feeling in your abdomen (belly). No driving for 24 hours (because of the anesthesia (medicine) used during the test). You may shower. Do not sign any important legal documents or operate any machinery for 24 hours (because of the anesthesia used during the test). NUTRITION Drink plenty of fluids. You may resume your normal diet as instructed by your doctor. Begin with a light meal and progress to your normal diet. Heavy or fried foods are harder to digestand may make you feel nauseated (sick to your stomach). Avoid alcoholic beverages for 24 hours or as instructed. MEDICATIONS You may resume your normal medications unless your doctor tells you otherwise. WHAT YOU CAN EXPECT TODAY Some feelings of bloating in the abdomen. Passage of more gas than usual. Spotting of blood in your stool or on the toilet paper. FOLLOW-UP Your doctor will discuss the results of your test with you. SEEK IMMEDIATE MEDICAL ATTENTION IF: There is more than a spotting of blood in your stool. There is abdominal distention (your abdomen is swollen). There is vomiting. You have a temperature over 101.5 F. There is abdominal pain or discomfort that is severe or gets worse throughout the day. Diverticulosis Many people have small pouches in their colon called diverticulum. The diverticulum bulge outward through weak spots in the colon. You could have one or more of these pouches in the colon. The condition of having these pouches in the colon is called diverticulosis or diverticular disease. Diverticulosis is usually diagnosed by tests to evaluate something else. For example, you may have had a colonoscopy to screen for colon cancer when the diverticulosis was found. Most people with diverticulosis do not have any discomfort or problems. If symptoms develop, they may include mild cramps, bloating, and constipation. A complication of this condition is called diverticulitis. This is when the diverticulum become inflamed and infected. How to treat diverticulosis: Increasing the amount of fiber in the diet may reduce symptoms of diverticulosis and prevent complications such as diverticulitis (infected diverticuli). Fiber keeps stool soft and lowers pressure inside the colon so that bowel contents can move througheasily. You should eat 20 to 35 grams of fiber each day. The table below shows the amount of fiber in some foods that you can easily add to your diet. Adding fiber slowly may decrease the bloating and fullness sometimes felt with an immediate high fiber diet. The doctor may also recommend taking a fiber product such as Citrucel or Metamucil once a day. In the past people with diverticulosis were to avoid nuts, corn, and seeds. This has not been foundto be true. If you find that certain foods create cramping or bloating, avoid that food. Foods high in fiber include: Fresh fruits, fresh vegetables, legumes (beans), whole wheat bread, bran muffins or cereal, and nuts. See the table below for examples of high fiber foods. Remember, your goal is 20- 35 grams per day. Amount of fiber in different foods Food Serving Grams of fiber Fruits Apple (with skin) 1 medium apple 4.4 Banana 1 medium banana 3.1 Oranges 1 orange 3.1 Prunes 1 cup, pitted 12.4 Juices Apple, unsweetened, w/added ascorbic acid 1 cup 0.5 Grapefruit, white, canned, sweetened 1 cup 0.2 Grape, unsweetened, w/added ascorbic acid 1 cup 0.5 Gila 1 cup 0.7 Vegetables Cooked Green beans 1 cup 4.0 Carrots 1/2 cup sliced 2.3 Peas 1 cup 8.8 Potato (baked, with skin) 1 medium potato 3.8 Raw Royal (with peel) 1 cucumber 1.5 Lettuce 1 cup shredded 0.5 Tomato 1 medium tomato 1.5 Spinach 1 cup 0.7 Legumes Baked beans, canned, no salt added 1 cup 13.9 Kidney beans, canned 1 cup 13.6 Iglesias beans, canned 1 cup 11.6 Lentils, boiled 1 cup 15.6 Breads, pastas, flours Bran muffins 1 medium muffin 5.2 Oatmeal, cooked 1 cup 4.0 White bread 1 slice 0.6 Whole-wheat bread 1 slice 1.9 Pasta and rice, cooked Macaroni 1 cup 2.5 Rice, brown 1 cup 3.5 Rice, white 1 cup 0.6 Spaghetti (regular) 1 cup 2.5 Nuts Almonds 1/2 cup 8.7 Peanuts 1/2 cup 7.9 Chart from [facility] 2013. SEEK IMMEDIATE MEDICAL CARE IF: You develop abdominal (belly) pain. An oral temperature above _ 101? F__develops. Repeated vomiting occurs. Blood is being passed in stools (bright red or black tarry stools). You develop any bowel problems or changes which you have not had before. Extra Information: To learn how much fiber and other nutrients are in different foods, visit the [place] Department of Agriculture (USDA) National Nutrient Database at: http://www.nal.usda.gov/fnic/foodcomp/search/ Created using data from the USDA National Nutrient Database for Standard Reference. Available at http://www.[employer].2Checkout.gov/fnic/foodcomp/search/. Information adapted from: [facility]? Patient Information ?2009 [employer]. [facility] 2012 http://www.[employer]/contents/rnooycgiwdco-hnmwifm-eslesh-the-basicsNormal [facility] CenterPatient Education - Texton [phone] Education - TextColonoscopy Care After Surgery Please read the instructions outlined below and refer to this sheet in the next few weeks. These discharge instructions provide you with general information on caring [facility] Your doctor may also give you specific instructions. While your treatment has been planned according to the most current medical practices available, unavoidable complications occasionally occur. If you have any problems or questions after discharge, please call your doctor. ACTIVITY You may resume your regular activity, but move at a slower pace for the next 24 hours. Take frequent rest periods for the next 24 hours. Walking will help get rid of the air and reduce the bloated feeling in your abdomen (belly). No driving for 24 hours (because of the anesthesia (medicine) used during the test). You may shower. Do not sign any important legal documents or operate any machinery for 24 hours (because of the anesthesia used during the test). NUTRITION Drink plenty of fluids. You may resume your normal diet as instructed by your doctor. Begin with a light meal and progress to your normal diet. Heavy or fried foods are harder to digestand may make you feel nauseated (sick to your stomach). Avoid alcoholic beverages for 24 hours or as instructed. MEDICATIONS You may resume your normal medications unless your doctor tells you otherwise. WHAT YOU CAN EXPECT TODAY Some feelings of bloating in the abdomen. Passage of more gas than usual. Spotting of blood in your stool or on the toilet paper. FOLLOW-UP Your doctor will discuss the results of your test with you. SEEK IMMEDIATE MEDICAL ATTENTION IF: There is more than a spotting of blood in your stool. There is abdominal distention (your abdomen is swollen). There is vomiting. You have a temperature over 101.5 F. There is abdominal pain or discomfort that is severe or gets worse throughout the day. Diverticulosis Many people have small pouches in their colon called diverticulum. The diverticulum bulge outward through weak spots in the colon. You could have one or more of these pouches in the colon. The condition of having these pouches in the colon is called diverticulosis or diverticular disease. Diverticulosis is usually diagnosed by tests to evaluate something else. For example, you may have had a colonoscopy to screen for colon cancer when the diverticulosis was found. Most people with diverticulosis do not have any discomfort or problems. If symptoms develop, they may include mild cramps, bloating, and constipation. A complication of this condition is called diverticulitis. This is when the diverticulum become inflamed and infected. How to treat diverticulosis: Increasing the amount of fiber in the diet may reduce symptoms of diverticulosis and prevent complications such as diverticulitis (infected diverticuli). Fiber keeps stool soft and lowers pressure inside the colon so that bowel contents can move througheasily. You should eat 20 to 35 grams of fiber each day. The table below shows the amount of fiber in some foods that you can easily add to your diet. Adding fiber slowly may decrease the bloating and fullness sometimes felt with an immediate high fiber diet. The doctor may also recommend taking a fiber product such as Citrucel or Metamucil once a day. In the past people with diverticulosis were to avoid nuts, corn, and seeds. This has not been foundto be true. If you find that certain foods create cramping or bloating, avoid that food. Foods high in fiber include: Fresh fruits, fresh vegetables, legumes (beans), whole wheat bread, bran muffins or cereal, and nuts. See the table below for examples of high fiber foods. Remember, your goal is 20- 35 grams per day. Amount of fiber in different foods Food Serving Grams of fiber Fruits Apple (with skin) 1 medium apple 4.4 Banana 1 medium banana 3.1 Oranges 1 orange 3.1 Prunes 1 cup, pitted 12.4 Juices Apple, unsweetened, w/added ascorbic acid 1 cup 0.5 Grapefruit, white, canned, sweetened 1 cup 0.2 Grape, unsweetened, w/added ascorbic acid 1 cup 0.5 Gila 1 cup 0.7 Vegetables Cooked Green beans 1 cup 4.0 Carrots 1/2 cup sliced 2.3 Peas 1 cup 8.8 Potato (baked, with skin) 1 medium potato 3.8 Raw Royal (with peel) 1 cucumber 1.5 Lettuce 1 cup shredded 0.5 Tomato 1 medium tomato 1.5 Spinach 1 cup 0.7 Legumes Baked beans, canned, no salt added 1 cup 13.9 Kidney beans, canned 1 cup 13.6 Iglesias beans, canned 1 cup 11.6 Lentils, boiled 1 cup 15.6 Breads, pastas, flours Bran muffins 1 medium muffin 5.2 Oatmeal, cooked 1 cup 4.0 White bread 1 slice 0.6 Whole-wheat bread 1 slice 1.9 Pasta and rice, cooked Macaroni 1 cup 2.5 Rice, brown 1 cup 3.5 Rice, white 1 cup 0.6 Spaghetti (regular) 1 cup 2.5 Nuts Almonds 1/2 cup 8.7 Peanuts 1/2 cup 7.9 Chart from [facility] 2013. SEEK IMMEDIATE MEDICAL CARE IF: You develop abdominal (belly) pain. An oral temperature above _ 101? F__develops. Repeated vomiting occurs. Blood is being passed in stools (bright red or black tarry stools). You develop any bowel problems or changes which you have not had before. Extra Information: To learn how much fiber and other nutrients are in different foods, visit the United [place] Department of Agriculture (USDA) National Nutrient Database at: http://www.nal.usda.gov/fnic/foodcomp/search/ Created using data from the USDA National Nutrient Database for Standard Reference. Available at http://www.nal.usda.gov/fnic/foodcomp/search/. Information adapted from: [facility]? Patient Information ?2009 [employer]. [employer] 2012 http://www.[employer]/contents/fmxutzcgwhij-mguznwk-ifjnwp-the-basicsNormal [facility] CenterProgress Note-Physicianon 42-88-6558Awhsskrl Note-PhysicianPatient: ALE DUQUE Age: 64 years Sex: Female : 1955 Associated Diagnoses: None Author: Cr Arroyo Jr., DO Preoperative Information Anesthesia history: Patient History: No prior problems.. Re-eval prior to induction: Inital eval reviewed: No significant interval change. Anesthesia results Review of Systems Constitutional: Negative except as documented in history of present illness. Cardiovascular: Negative except as documented in history of present illness. Respiratory: Negative. Health Status Allergies: Allergic Reactions (Selected) No Known Allergies, Allergies (1) Active Reaction No Known Allergies None Documented Current medications: (Selected) Inpatient Medications Ordered Lactated Ringers IV Licha 1000 mL 1,000 mL: 1,000 mL, IV, 100 mL/hr, Routine, Start date 04/26/20 6:45:00 EST, 10 hour(s), Total volume (mL): 1,000, 77.2 kg, 1.84, m2 Prescriptions Prescribed Cipro 500 mg Tab: 500 mg = 1 tab(s), Oral, BID, X 10 day(s), # 20 tab(s), Refills(s) 0, Pharmacy: [facility]/pharmacy #[id number], 157.5, cm, 04/18/20 14:13:00 EST, Height/Length Dosing, 77.2, kg, 04/18/20 14:13:00 EST, Weight Dosing Suprep Bowel Prep Kit oral liquid: 177 mL, Oral, As Directed for 2 dose(s), 1 kit(s), Refill(s) 0, dilute each 177 ml bottle and drink according to box directions or as directed by physician, [facility]/pharmacy #[id number], 157.5, cm, 04/18/20 14:13:00 EST, Height/Length Dosing, 77.2, kg, 04/18/20... Documented Medications Documented Lamictal: 200 mg, Oral, Daily, Refills(s) 0, Seizure Histories Past Medical History: No active or resolved past medical history items have been selected or recorded. Family History: Diabetes mellitus type 1 Father Mother Procedure history: No active procedure history items have been selected or recorded. Social History Social & Psychosocial Habits Tobacco 04/18/2020 Tobacco Use: Never (less than 100 in l . Physical Examination Respiratory: Lungs are clear to auscultation. Cardiovascular: Regular rhythm. Plan [place] [employer] Anesthesiologists (ASA) physical status classification: Anesthetic Preoperative Plan Anesthesia: General. . Anesthetic plan, risks, benefits, and alternatives discussed with the patient and/or family. Patient verbalized understanding. ASA Class IINoMercy Health St. Vincent Medical CenterComment on above:Result Comment: Electronically Signed By: Cr Arroyo Jr., DO.lesley\Date and Time Signed: 04/26/20 09:34 ESTPhysician Orderon [id number] Order [id number]:[address] [place], [place] [address]Reference Lab Reporton 22-22-0972Yioffhxga Lab Report [id number]#1.00CD:[address] [place], [place] [address]Consent for Procedure/Surgeryon 85-87-0835Lauqhzw for Procedure/Surgery [id number]:[address] [place], [place] [address]Physician Orderon [id number] Order [id number]:[address] [place], [place] [address]Priority Order-Paz 79-26-9555Xhgozafb Order-STATCommentUniversity Hospitals Portage Medical CenterComment on above:Result Comment: Received Performed at: [facility] [address] [place], [place] [id number] MD Shaw AnanoraPerformed By: #### [id number], SARS-CoV-2, HARISH ####[address] [place] [address] SARS-CoV-2, NAAon 09-05-6297TNWO CORONAVIRUS 2 RNA:PRTHR:PT:RESPIRATORY:ORD:PROBE.AMP.TARNot DetectedNot DetectedUniversity Hospitals Portage Medical CenterComment on above:Result Comment: This nucleic acid amplification test was developed and its performance characteristics determined by [employer]. Nucleic acid amplification tests include PCR and TMA. This test has not been FDA cleared or approved. This test has been authorized by FDA under an Emergency Use Authorization (EUA). This test is only authorized for the duration of time the declaration that circumstances exist justifying the authorization of the emergency use of in vitro diagnostic tests for detection of SARS-CoV-2 virus and/or diagnosis of COVID-19 infection under section 564(b)(1) of the Act, 21 U.S.C. 360bbb-3(b) (1), unless the authorization is terminated or revoked sooner. When diagnostic testing is negative, the possibility of a false negative result should be considered in the context of a patient's recent exposures and the presence of clinical signs and symptoms consistent with COVID-19. An individual without symptoms of COVID-19 and who is not shedding SARS-CoV-2 virus would expect to have a negative (not detected) result in this assay. Performed at: [facility] [address] [place], [place] [id number] MD Shaw AnaghPerformed By: #### [id number], SARS-CoV-2, HARISH ####[address] [place] [address] Consent for Treatmenton 66-14-5799Sguqgeg for Treatment [id number]#1.00CD:127NormalUniversity Hospitals Portage Medical CenterAmbulatory Clinical Summaryon 34-66-8252Csytlwhayw Clinical Summary {lx-gh-01-w5-13-vv-26-s7-35-65-3h-81-cf-c6-fa-6d}CD:166702WkrnhlQkeyerUniversity Hospitals Conneaut Medical CenterAmbulatory Clinical Summary {17-[id number]-[id number]-[id number]-[id number]-3i-8x-t4-76-30-ec-65}CD:[id number] Hospitals Conneaut Medical CenterGastroenterology Office/Clinic Noteon 49-56-6053Fxjgcqzonzztefqw Office/Clinic NoteChief Complaint blood in stool, bloating weight gain HPI Staff This is a 64 year old female who presents today for referral by Dr Malave for blood in stool, bloating, and weight gain. History of Present Illness 64 years old white female referred to me to be evaluated for rectal bleeding, constipation and abdominal bloating, she reported chronic constipation for years but her constipation is getting worse over the last 4 weeks, she reports 1 bowel movement every 3 to 4 days, she reports very hard stool, she also reports multiple episodes of blood in stool and also when she wipes, she reports significant bloating, excessive gas, gurgling and abdominal distention Review of Systems PHQ Score Initial Depression Screen Score: 0 Constitutional: no fever, no chills, no sweats, no weakness Skin: no Jaundice, no rash, no lesions, no petechiae ENMT: no ear pain, no sore throat, no congestion, no hoarseness Respiratory: no shortness of breath, no cough, no orthopnea, no wheezing Cardiovascular: no chest pain, no palpitations, no edema Gastrointestinal: no nausea, no vomiting, no diarrhea, severe Constipation yesGI bleeding no abd pain no dysphagia no bloating yes heartburn Genitourinary: no dysuria, no hematuria, no discharge, no pain Musculoskeletal: no back pain, no trauma Neurologic: no numbness, no sleeping problems Additional ROS info: Except as noted in the above Review of Systems and in the History of Present Illness all other systems have been reviewed and are negative or noncontributory. Physical Exam Vitals & Measurements T: 36.8 ?C (Temporal Artery) HR: 81(Peripheral) RR: 16 BP: 103/52 HT: 157.5 cm HT: 157.48 cm WT: 77.2 kg WT: 77.2 kg BMI: 31.13 Constitutional: Appearance: well developed Skin: Inspection: no rashes, ulcers, icterus , or telangiectasias. Eyes: Conjunctivae/lids: normal conjunctivae and lids. ENMT: Hearing: within normal limits. Lips/Teeth/Gums: normal oral mucosa Neck: Neck: normal motion, central trachea. Respiratory: Percussion: thorax normoresonant. Auscultation: normal breath sounds; no rubs, wheezes, rale or ronchi. Cardiovascular: Auscultation: normal rhythm, S1 and S2; no rubs, murmurs or gallop. Peripheral: no edema Gastrointestinal/Abdomen: Abdomen: normal consistency and bowel sounds; no tenderness or masses. Liver/Spleen: normal size and consistency, not palpable. Rectal: deferred Musculoskeletal: Gait/station: normal gait Assessment/Plan 1. Constipation (K59.00: Constipation, unspecified) Proceed with colonoscopy, CBC, CMP, calcium level, magnesium level and TSH Ordered: Calcium Level Total CBC w/ Auto Diff Colonoscopy (Hospital Procedure) Comprehensive Metabolic Panel Magnesium Level Thyroid Stimulating Hormone 2. Bloating (R14.0: Abdominal distension (gaseous)) Bloating likely related to small bowel bacterial overgrowth and constipation, will start probioticsand antibiotics Ordered: ciprofloxacin, 500 mg = 1 tab(s), Oral, BID, X 10 day(s), # 20 tab(s), Refills(s) 0, Pharmacy: [facility]/pharmacy #[id number], 157.5, cm, 04/18/20 14:13:00 EST, Height/Length Dosing, 77.2, kg, 04/18/20 14:13:00 EST, Weight Dosing 3. Rectal bleed (K62.5: Hemorrhage of anus and rectum) Ordered: Colonoscopy (Hospital Procedure) Follow-up With When Contact Information Judith QUARLES MD Within 2 weeks [facility] [address] [place] [address]- Additional Instructions: Patient Education Constipation, Adult Problem List/Past Medical History Ongoing No qualifying data Historical No qualifying data Medications Cipro 500 mg Tab, 500 mg= 1 tab(s), Oral, BID Lamictal, Oral, BID Allergies No Known Allergies Social History Tobacco Never (less than 100 in lifetime) Tobacco Use:., 04/18/2020 Family History Diabetes mellitus type 1: Mother and Father.[facility] Comment on above:Result Comment: Electronically Signed By: ROBINA BRODERICK, Judith\.br\Date and Time Signed: 04/18/20 14:38 ESTPatient Educationon 04-18-2020 Patient EducationFamily Medicine Constipation, Adult Constipation is when a person has fewer than 3 bowel movements a week; has difficulty having a bowel movement; or has stools that are dry, hard, or larger than normal. As people grow older, constipation is more common. If you try to fix constipation with medicines that make you have a bowel movement (laxatives ), the problem may get worse. Long-term laxative use may cause the muscles of the colonto become weak. A low-fiber diet, not taking in enough fluids, and taking certain medicines may make constipation worse. CAUSES ? Certain medicines, such as antidepressants, pain medicine, iron supplements, antacids, and water pills. ? ? Certain diseases, such as diabetes, irritable bowel syndrome (IBS), thyroid disease, or depression. ? ? Not drinking enough water. ? ? Not eating enough fiber-rich foods. ? ? Stress or travel. ? Lack of physical activity or exercise. ? Not going to the restroom when there is the urge to have a bowel movement. ? Ignoring the urge to have a bowel movement. ? Using laxatives too much. SYMPTOMS ? Having fewer than 3 bowel movements a week. ? ? Straining to have a bowel movement. ? ? Having hard, dry, or larger than normal stools. ? ? Feeling full or bloated. ? ? Pain in the lower abdomen. ? Not feeling relief after having a bowel movement. DIAGNOSIS Your caregiver will take a medical history and perform a physical exam. Further testing may be donefor severe constipation. Some tests may include: ? A barium enema X-ray to examine your rectum, colon, and sometimes, your small intestine. ? A sigmoidoscopy to examine your lower colon. ? A colonoscopy to examine your entire colon. TREATMENT Treatment will depend on the severity of your constipation and what is causing it. Some dietary treatments include drinking more fluids and eating more fiber- rich foods. Lifestyle treatments may include regular exercise. If these diet and lifestyle recommendations do not help, your caregiver may recommend taking kqjo-nit-rqeyhye laxative medicines to help you have bowel movements. Prescription medicines may be prescribed if zaog-ekv-xwrxeht medicines do not work. HOME CARE INSTRUCTIONS ? Increase dietary fiber in your diet, such as fruits, vegetables, whole grains, and beans. Limit high-fat and processed sugars in your diet, such as [place]ore[place] fries, hamburgers, cookies, candies, and soda. ? ? A fiber supplement may be added to your diet if you cannot get enough fiber from foods. ? ? Drink enough fluids to keep your urine clear or pale yellow. ? ? Exercise regularly or as directed by your caregiver. ? ? Go to the restroom when you have the urge to go. Do not hold it. ? Only take medicines as directed by your caregiver. Do not take other medicines for constipation without talking to your caregiver first. SEEK IMMEDIATE MEDICAL CARE IF: ? You have bright red blood in your stool. ? ? Your constipation lasts for more than 4 days or gets worse. ? ? You have abdominal or rectal pain. ? ? You have thin, pencil-like stools. ? You have unexplained weight loss. MAKE SURE YOU: ? Understand these instructions. ? Will watch your condition. ? Will get help right away if you are not doing well or get worse. Document Released: 02/08/2005 Document Revised: 08/04/2012 Document Reviewed: 04/15/2012 ExitCare? Patient Information ?2013 SetJamWilmington HospitalNutricate.[facility] Medical CenterPhysician Orderon [id number] Order [id number]:127[facility] Medical CenterPhysician Referralon 35-47-1080Jafxynmar Referral [id number]:127[facility] Vital Signs Date TimeVital SignValuePerforming KmdwawfqkVuqohgri60-67-7088 15:08-0500Body lekhvz107.48 cmSydni Malave MD Work Phone: [facility]11-11-2025 15:08-0500 Body mass index (BMI) [Ratio]32.9 kg/s0QvbskwSydni Malave MD Work Phone: [facility]11-11-2025 15:08-0500 Body xafwys12.64 kgSydni Malave MD Work Phone: [facility]11-11-2025 15:08-0500 Diastolic blood llldgxdy29 mm[Hg]Sydni Malave MD Work Phone: [facility]11-11-2025 15:08-0500 Heart rate85 /Jaycee Malave MD Work Phone: [facility]11-11-2025 15:08-0500 Systolic blood bdwmwbky366 mm[Hg]Sydni Malave MD Work Phone: [facility]10-29-2024 13:21-0400 Body xmbzjy352.48 cmMount Carmel Health System10-29-2024 13:21-0400Body mass index (BMI) [Ratio]30.9 kg/x1EcxyupdzwMount Carmel Health System10-29-2024 13:21-0400Body .65 kgMount Carmel Health System10-29-2024 13:21-0400Diastolic blood khmqmezf57 mm[Hg][facility] 03-24-2024 13:21-0400Heart rate76 /minMount Carmel Health System 03-24-2024 13:21-0400Systolic blood xugtypxt147 mm[Hg][facility]11-30-2023 14:00-0500Body .48 cmSydni Malave Other [employer] Other [id number] 14:00-0500Body mass index (BMI) [Ratio] 31.35 kg/m8HjvtomSydni Malave Other [employer] Other 11-30-2023 14:00-0500Body .75 kgSydni Malave Other [employer] Other 11-30-2023 14:00-0500Diastolic blood xkjkfyiq71 mm[Hg] Sydni Malave Other [employer] Other [id number] 14:00-0500Systolic blood wiqarzbj590 mm[Hg] Sydni Ananda Other [employer] Other Encounters Encounter DateEncounter TypeCare ProviderFacilfayette county memorial hospitalStart: 04-06-2025 End: 30-33-3663yvbphavdayUmowxb E Braun MD Work Phone: [facility] 04-06-2025 End: 56-33-1767Oiwtvgo encounter procedureSydni Malave MD-[facility] Work Phone: Start: 90-85-7203Gtqolff encounter procedureSydni Malave MD Work Phone: [facility]: 03-24-2024 End: 82-46-8558mmlzrvgycpYrbxghggfMedina Hospital Work Phone: Start: 03-24-2024 End: 45-72-4580Wivqkdp encounter procedurePsychiatric Hospital Physician [facility] Work Phone: Start: 05-23-2023 End: 04-75-1192rzsxbhjayfUqyras Braun Other [employer] Other Start: 00-56-4414Qzzkpdppj encounterMarcia [facility] Centertart: 04-25-2023 End: 02-51-2116wzviqdbxaoKipbju Braun Other [employer] Other Start: 92-91-0018Mkturjmzo for general adult medical examination without abnormal findingsMarcia [facility] Medical Centertart: 48-18-9550Vnriesfv preventive med est patient 65yrs& olderMarcia [facility] Centertart: 04-24-2023 End: 41-80-4665kecbbdmepyHbmcwl Braun Other [employer] Other Start: 60-75-8217Qindhtkys encounterSydni [facility] Taylortart: 71-77-2819Zkatxlvng for general adult medical examination without abnormal findingsDR SYDNI MALAVEProm[facility]ica [facility] Start: 02-05-2022 End: 50-55-4888iuppzgtabjOX SYDNI Manuel ANANDAFacility:P9Jrcxi: 02-05-2022 End: 74-04-1589Rvkakjbwm for general adult medical examination without abnormal findings SYDNI Manuel ANANDAFacility:H1 Plan of Treatment DateCare ActivityDetailAuthorComprehensive metabolic 2000 panel - Serum or PlasmaMount Carmel Health SystemMG Breast - bilateral ScreeningMount Carmel Health SystemMG Breast - bilateral [facility]US.doppler Carotid arteries - [facility] Payers DatePayer CategoryPayerPolicy [id number] [id number] Social History DateTypeDetailFacilitySex Assigned At [employer] [facility]inesEn[place] [employer] Other Start: 04-25-2023 End: 77-44-0709Ukvydfm smoking status NHISEx-smoker (finding)[facility] Centertart: 63-49-0929Sbe Assigned At [facility] HospitalexFemale (finding)[facility] Evaluation note 04-25-2023 Note Date & RxhqJsuwZhdkikhu41-11-3474 Evaluation note* Encounter Date Diagnosis Assessment Notes Treatment Notes Treatment Clinical Notes Mar, Well adult exam (ICD-10 - Z00.00 ) We have discussed the necessity of following up with PCP regularly as well as specialists, as needed. Discussed F/U with dentistry and optometry at least yearly. Discussed all preventative measures/ cancer screenings as applicable to this patient. Emphasized the importance of a reduced fat, low carb diet to promote heart health and controlled blood sugars. Reviewed social history and ensured patient is safe within the home today. Pt denies any abuse of alcohol, nicotine, caffeine or recreational drugs. I have ensured patient is of stable mental and physical health today. We have discussed appropriate F/U schedule as well as blood work and vaccinations that apply. All questions answered and p atient is sent home pleased, without concerns. Mar,ain of right heel (ICD-10 - M79.671)Start w xray, consider podiatry referral if indicated Mar,Right flank pain (ICD-10 - R10.9)discussed possible nephrolithiasis. begin assessment w xray Mar,Screening mammogram for breast cancer (ICD-10 - Z12.31) [place] [employer] Other Evaluation note Note Date & TypeNoteFacilityEvaluation noteNo InformationNortThomas Jefferson University Hospital [employer] Other Evaluation note Note Date & TypeNoteFacilityEvaluation note* Diagnosis Onset Date Resolution Status Elevated glucose acuteHyperlipidemiaacuteScreening mammogram for breast canceracute [facility] Work Phone: Evaluation note Note Date & TypeNoteFacilityEvaluation note* Diagnosis Onset Date Resolution Status Admit Date Left carotid bruit acuteNov2024 3:05pmMedicare annual wellness visit, subsequentacute April 06, 2025 3:05pmScreening mammogram for breast canceracuteApril 06, 2025 3:05pm [facility] Work Phone: History general Narrative - Reported Note Date & TypeNoteFacilityHistory general Narrative - Reported* Type Description Date Medical History Acute LUQ pain Medical HistoryHyperpigmentationMedical HistoryHypothyroidismSurgical History CholecystectomySurgical HistoryBTLSurgical HistoryNephrolithiasis procedures, Surgical HistoryR foot surgery (Olivo's neuroma)Surgical History3 wrist surgeriesHospitalization Historysee above [employer] Other Reason for referral (narrative) Note Date & TypeNoteFacilityReason for referral (narrative)No reason for referral information availableRiverside Methodist Hospital Work Phone: Summary Purpose Family History Relationship Condition Age at Onset Recorded Date/T moy father Diabetes mellitus Unknown motherDiabetes mellitusUnknownHeart diseaseUnknownsisterDiabetes mellitusUnknown Advance Directives Advance Directive Response Recorded Date/ Time Advance Directives No March 24, 2024 1:09pm Advance Directive Response Recorded Date/ Time Advance Directives No March 24, 2024 12:09pm Procedure Findings Note Patient: ALE DUQUE RN: [id number] Age: 64 years Sex: Female : 1955 Associated Diagnoses: None Author: Cr Arroyo Jr., DO Postoperative Information Post Operative Note: Post Anesthesia Care Unit. Anesthetic utilized: General. Health Status Allergies: Allergic Reactions (Selected) No Known Allergies Problem list: No problem items selected or recorded. Physical Examination Vital Signs 04/26/2020 9:55 EST Heart Rate Monitored 75 bpm Respiratory Rate Monitored 18 br/min Systolic Blood Pressure 121 mmHg Diastolic Blood Pressure 62 mmHg SpO2 97 % 04/26/2020 9:40 EST Heart Rate Monitored 65 bpm Respiratory Rate Monitored 18 br/min Systolic Blood Pressure 98 mmHg Diastolic Blood Pressure 61 mmHg SpO2 98 % 04/26/2020 9:35 EST Heart Rate Monitored 69 bpm Respiratory Rate Monitored 12 br/min Systolic Blood Pressure 98 mmHg Diastolic Blood Pressure 65 mmHg SpO2 90 % 04/26/2020 9:31 EST Temperature Temporal Artery 36.1 DegC LOW Heart Rate Monitored 69 bpm Respiratory Ra (more content not included)... Chief Complaint and Reason for Visit Chief Complaint wellness/med refill Reason for Visit Elevated glucose Hyperlipidemia Screening mammogram for breast cancer Chief Complaint Admit Date Wellness April 06, 2025 3:05pm Reason for Visit Admit Date Left carotid bruit April 06, 2025 3:05pm Medicare annual wellness visit, subseque nt April 06, 2025 3:05pm Screening mammogram for breast cancer No vember 2024 3:05pm Additional Source Comments INFORMATION SOURCE (unrecogn ized section and content) DATE CREATED AUTHOR 06/08/2020 [facility] DATE CREATED AUTHOR AUTHOR'S ORGANIZ ATION 02/24/2022 [facility] REASON FOR VISIT (unrecogniz ed section and content) RefillWELLNESSlabs and xrays Care Teams (unrecognized sec tion and content) Team Status: Active Member Role Status Dates Sydni Malave MD Primary Care Provider Active Team Status: Inactive Member Role Status Dates Sydni Malave MD Primary Care Provide r, Attending Provider Active Start: March 24, 2024 End: March 24, 2024 Team Status: Active Member Role/Relationship Status Dates Sydni Malave MD Primary Care Provider Active Team Status: Inactive Member Role/Relationship Status Dates Sydni Malave MD Primary Care Provider Active Start: April 06, 2025 End: April 06, 2025Sydni Malave MDAttending ProviderActiveStart: April 06, 2025 End: April 06, 2025 Goals (unrecognized section and content) Goals may be documented in a n alternate section FOR RECORDS PERTAINING TO PATIENTS WHO ARE OR HAVE BEEN ENROLLED IN A CHEMICAL DEPENDENCY/SUBSTANCEABUSE PROGRAM, SOME INFORMATION MAY BE OMITTED. This clinical summary was aggregated from multiple sources. Caution should be exercised in using it in the provision of clinical care. This summary normalizes information from multiple sources, and as a consequence, information in this document may materially change the coding, format and clinical context of patient data. In addition, data may be omitted in some cases. CLINICAL DECISIONS SHOULD BE BASED ON THE PRIMARY CLINICAL RECORDS. [employer] [email or web address] provides no warranty or guarantee of the accuracy or completeness of information in this document.
--- NOTE | 2025-05-07 15:00 | MM_ITS ---
Patient Name: CORAZON DUQUE MR#: [id number] : 1955 Exam Date: 05/07/2025 Ordering Doctor: DR YASEMIN MALAVE M.D. RADIOLOGY REPORT PROCEDURE: MM TOMOSYNTHESIS SCREENING BI COMPARISON: MM TOMOSYNTHESIS SCREENING BI, 05/06/2023. MG MAMM SCREEN 3D ESTHER CAD, 02/05/2022. MG MAMM SCREEN ESTHER W CAD, 11/20/2018. MG MAMM ESTHER SCRN W CAD DIG, 01/13/2013. INDICATIONS: Screening Calculator Name NCI Breast Cancer Risk Assessment Tool 5 Year Breast Cancer Risk 1.20% Lifetime Breast Cancer Risk 4.00% Personal Breast Cancer No Personal Ovarian Cancer No Treatments None Family Cancers None LOCATION: [facility] BREAST COMPOSITION: The breasts are heterogeneously dense, which may obscure small masses. FINDINGS: RIGHT BREAST: No significant suspicious finding. Benign-appearing calcifications are present. LEFT BREAST: No significant suspicious finding. There is a similar focal asymmetry. There is a benign-appearing calcifications. DIAGNOSTIC CATEGORY 2--BENIGN FINDING. NO CHANGE FROM COMPARISON. RECOMMENDATIONS: ROUTINE MAMMOGRAM AND CLINICAL EVALUATION IN 12 MONTHS. Dictated by: Darrius Diana MD on 05/07/2025 at 15:41 Approved by: Darrius Diana MD on 05/07/2025 at 15:56
== END 2025-05-07 14:30 | disposition home or self-care (01) ==
LOC: MAMMO 14:29
PROVIDERS: PCP Family Medicine; Visit Provider Family Medicine
DX: Z12.31 Encounter for screening mammogram for malignant neoplasm of breast (principal); R09.89 Other specified symptoms and signs involving the circulatory and respiratory systems
CPT/HCPCS: 77063; 77067; 93880